=== PATIENT | female | born 1965 | race Caucasian/White ===

== ENCOUNTER → 2020-03-20 19:25 | Outpatient (ROUT) | payer OTHER, SELFPAY ==
[2020-03-20 19:53] LABS: BUN Creatinine Ratio 24.1 (6-22); Blood Urea Nitrogen 13 mg/dL (7-17); Calcium 9.5 mg/dL (8.4-10.2); Carbon Dioxide 27 mmol/L (22-32); Chloride 95 mmol/L (98-107); Cholesterol 169 mg/dL (140-199); Estimated Glomerular Filt Rate > 60.0 mL/min (>60); Glucose 242 mg/dL (70-100); HDL Cholesterol 54 mg/dL (40-60); HEMOLYSIS < 15 (0-50); Hemoglobin A1C% w Est Avg Glu 8.7 % (4.0-6.0); LDL Cholesterol Calculated 90 mg/dL (<100); Potassium 4.3 mmol/L (3.4-5.1); Sodium 132 mmol/L (137-145); Triglycerides 125 mg/dL (35-150)
== END ==
PROVIDERS: Visit Provider Internal Medicine
DX: E11.9 Type 2 diabetes mellitus without complications (principal)
CPT/HCPCS: 80048; 80061; 83036

== ENCOUNTER → 2020-06-26 18:43 | Outpatient (ROUT) | payer OTHER, SELFPAY | PROVIDERS: Visit Provider Internal Medicine | DX: N39.0 Urinary tract infection, site not specified (principal) | CPT/HCPCS: 87077; 87086; 87147 ==

== ENCOUNTER → 2020-08-15 18:58 | Outpatient (ROUT) | payer OTHER, SELFPAY | PROVIDERS: Visit Provider Internal Medicine | DX: N39.0 Urinary tract infection, site not specified (principal) | CPT/HCPCS: 87077; 87086; 87147 ==

== ENCOUNTER → 2020-11-01 13:55 | Outpatient (CLI) | payer OTHER, SELFPAY ==
--- NOTE | 2020-11-01 14:05 | DI.RAD.S_ITS ---
PROCEDURE: XR CHEST 2V INDICATIONS: COUGH/PNEUMONIA TECHNIQUE: 2 views of the chest were acquired. COMPARISON: None. FINDINGS: Surgical changes and devices: None. Lungs and pleura: Scattered subsegmental scarring and/or atelectasis. No acute consolidation. No pleural effusions or pneumothorax. Mediastinum: Mediastinal contours are normal. Heart size is normal. Bones and chest wall: No suspicious bony abnormalities. Soft tissues appear unremarkable. IMPRESSION: No acute disease. Dictated by: David Medrano M.D. on 11/01/2020 at 15:11 Approved by: David Medrano M.D. on 11/01/2020 at 15:12
== END ==
PROVIDERS: PCP Internal Medicine; Referring Provider Internal Medicine; Visit Provider Internal Medicine
DX: J18.9 Pneumonia, unspecified organism (principal); R05 Cough
CPT/HCPCS: 71046

== ENCOUNTER → 2024-07-25 14:59 | Outpatient (CLI) | payer BC, SELFPAY ==
--- NOTE | 2024-07-25 | DI.RAD.S_ITS ---
PROCEDURE: XR FINGER LT MIN 2V INDICATIONS: mallet finger of left fingers, post-op TECHNIQUE: AP hand, 3 views of the 5th finger(s) acquired. COMPARISON: None. FINDINGS: Bones: Pronounced osseous demineralization is noted within the distal middle and entire distal phalanges of the 5th digit. [place] noted within the proximal dorsal aspect the base of the 5th distal phalanx. No fractures or dislocations. No suspicious bony lesions. Soft tissues: No suspicious soft tissue calcifications. IMPRESSION: Focally diminished osseous demineralization and postsurgical change involving the 5th DIP joint and distal phalanx. Dictated by: Deepak Herrera M.D. on 07/25/2024 at 23:20 Approved by: Deepak Herrera M.D. on 07/25/2024 at 23:22
== END ==
PROVIDERS: PCP Internal Medicine; Referring Provider Orthopaedic Surgery; Visit Provider Orthopaedic Surgery
DX: M20.012 Mallet finger of left finger(s) (principal)
CPT/HCPCS: 73140